=== PATIENT | male | born 1960 | race Caucasian/White ===

== ENCOUNTER 2019-02-22 17:03 | Observation (INO) ==
[2019-02-22 17:31] LABS: Basophils # 0.1 10*3/uL (0.0-0.2); Basophils % 0.6 % (0.0-0.8); Eosinophils # 0.2 10*3/uL (0.0-0.87); Eosinophils % 2.9 % (0.00-10.9); Hematocrit 39.2 VOL% (42.0-52.0); Hemoglobin 12.6 GM/DL (14.0-18.0); Immature Granulocytes % 0.2 %; Immature Granulocytes Absolute 0.02 #; Lymphocytes # 3.1 10*3/uL (1.4-4.0); Lymphocytes % 37.5 % (21.2-54.2); Mean Corpuscular HGB Conc 32.1 GM/DL (32-36); Mean Corpuscular Volume 102.1 FL (87-102); Mean Platelet Volume 10.3 FL (9.6-12.0); Monocytes % 6.7 % (1.7-12.7); Neutrophils % 52.1 % (38.7-73.9); Platelet Count 234 T/CUMM (130-400); Red Blood Count 3.84 MC/CUMM (3.8-5.5); Red Cell Distribution Width 14.1 % (9.3-17.3); White Blood Count 8.3 T/CUMM (4-12)
[2019-02-22 17:56] LABS: Albumin 4.2 G/DL (3.4-5.0); Bilirubin,Total 0.4 MG/DL (0.2-1.0); Osmolality,Calculated 288.1 MOS/KG (273-304); Total Protein 7.3 G/DL (6.4-8.3)
[2019-02-22] MEDS ORDERED: MAGNESIUM SULF RIDER 4 GM in PREMIX 1 EACH IV PRN (19:23)
[2019-02-22] MEDS ORDERED: MAGNESIUM SULF RIDER 2 GM in PREMIX 1 EACH IV PRN (19:23)
[2019-02-22] MEDS ORDERED: MORPHINE 4 MG/1 ML VIAL IV PRN (19:23)
[2019-02-22] MEDS ORDERED: POTASSIUM CHLORIDE 20 MEQ TABLET PO PRN ×2 (19:23→19:30)
[2019-02-22] MEDS ORDERED: ASPIRIN CHEW 81 MG TABLET PO STA (19:30)
[2019-02-22] MEDS ORDERED: SODIUM CHLORIDE 0.9% 500 ML IV ONE (19:36)
[2019-02-22] MEDS ORDERED: ATORVASTATIN 20 MG TABLET PO SCH (21:00)
[2019-02-22] MEDS ORDERED: ENOXAPARIN 40 MG/0.4 ML SYRINGE SUBCUT SCH (21:00)
[2019-02-22] MEDS: GABAPENTIN 300 MG CAPSULE PO SCH (22:48)
[2019-02-23] MEDS: METOPROLOL TARTRATE 25 MG TABLET PO SCH ×2 (01:14→10:07)
[2019-02-23 02:03] LABS: Risk Ratio 6.17; VLDL CHOLESTEROL 20.2 MG/DL
[2019-02-23] MEDS ORDERED: FLUoxetine 20 MG CAPSULE PO SCH (09:00)
[2019-02-23] MEDS ORDERED: ASPIRIN EC 325 MG TABLET PO SCH (09:00)
[2019-02-23] MEDS: GABAPENTIN 300 MG CAPSULE PO SCH (10:06)
[2019-02-23] MEDS ORDERED: NITROGLYCERIN SL 0.4 MG TABLET SL PRN (14:37)
[2019-02-23] MEDS ORDERED: PANTOPRAZOLE 40 MG TABLET PO SCH (15:00)
[2019-02-23] MEDS ORDERED: BUDESONIDE/FORMOTEROL 80-4.5 INHALER 6.9 GM INH SCH (15:00)
[2019-02-23 16:06] VITALS: BP 117/57
[2019-02-24] MEDS ORDERED: ASPIRIN EC 81 MG TABLET PO SCH (09:00)
== END 2019-02-23 16:44 | disposition home or self-care (01) ==
LOC: N.EDINP 17:03 → N.ED 17:03 → N.TELEN 21:04
PROVIDERS: ADMIT Internal Medicine; ATTEND Internal Medicine